=== PATIENT | male | born 1950 | race Caucasian/White ===

== ENCOUNTER 2023-08-23 10:48 | Observation (INO) ==
[2023-08-23 11:42] LABS: Hematocrit 36.9 % (38-53); Hemoglobin 12.7 g/dL (13.2-16.3); Mean Corpuscular Hemoglobin 28.4 pg (27-33); Mean Corpuscular Hgb Conc 34.4 g/dL (31-36); Mean Corpuscular Volume 82.6 fL (80-97); Mean Platelet Volume 5.9 fL (7.5-11.2); Platelet Count 275 10^3/uL (150-450); Red Blood Count 4.47 10^6/uL (4.06-5.63); Red Cell Distribution Width 15.5 % (12-17)
[2023-08-23] MEDS: NS 0.9% 500 ml BAG 500 ML IV ONE (11:45)
[2023-08-23 12:05] LABS: High Sens Troponin Baseline 8 pg/mL (<20)
[2023-08-23 12:13] LABS: ABS Basophils 0.1 10^3/uL (0.0-0.1); ABS Eosinophils 0.1 10^3/uL (0.0-0.5); ABS Lymphocytes 1.2 10^3/uL (1.0-4.8); ABS Monocytes 1.9 10^3/uL (0.0-1.1); ABS Neutrophils 6.7 10^3/uL (1.5-7.6); ABS Nucleated RBC 0.01 10^3/ul; Eosinophil % 1.4 %; Lymphocyte % 11.8 %; Nucleated Red Blood Cells % 0.1 %/100WBC (0.0-0.8)
[2023-08-23 12:40] LABS: Urine Appearance Clear; Urine Bilirubin Negative (Negative); Urine Blood Negative (Negative); Urine Color Yellow; Urine Glucose Negative (Negative); Urine Ketones Negative (Negative); Urine Nitrite Negative (Negative); Urine Protein Trace (Negative); Urine Specific Gravity 1.016 (1.002-1.030); Urine Urobilinogen Negative (Negative)
[2023-08-23 13:15] LABS: INR 1.24 (0.83-1.13)
[2023-08-23 13:15] LABS: ALT 11 U/L (7-52); AST 22 U/L (13-39); Albumin 4.1 g/dL (3.2-5.2); Albumin/Globulin Ratio 1.4 (1-3); Alkaline Phosphatase 70 U/L (35-149); Anion Gap 12 mmol/L (2-16); Blood Urea Nitrogen 18 mg/dL (6-24); CO2 Carbon Dioxide 19 mmol/L (22-32); Calcium 9.3 mg/dL (8.6-10.3); Chloride 97 mmol/L (101-111); Creatinine, Serum 1.31 mg/dL (0.67-1.17); Glucose 100 mg/dL (70-100); Lipase < 10 U/L (11.0-82.0); Magnesium 1.4 mg/dL (1.9-2.7); Potassium 3.6 mmol/L (3.5-5.0); Sodium 128 mmol/L (135-145); Total Bilirubin 1.1 mg/dL (0.2-1.0); Total Protein 7.1 g/dL (6.4-8.9); eGFR CKD-EPI 57.8 (>60)
[2023-08-23] MEDS ORDERED: Dextrose 50% Syringe 50 ml 25 GM/50 ML SYRINGE IV PUSH ONE (13:18)
[2023-08-23 13:20] LABS: RBC Morphology Normal (Normal)
[2023-08-23 13:23] LABS: High Sensitivity Troponin 1 Hr 8 pg/mL (<20)
[2023-08-23] MEDS: Iodixanol (CONTRAST) 320 MG/ML 100 ML SDV IV ONE (13:46)
[2023-08-23] MEDS: Magnesium Sulfate 2 gm BAG 2 GM/50 ML BAG IVPB ONE (14:41)
[2023-08-23] MEDS: NS 0.9% 1000 ml BAG 1,000 ML IV SCH (14:41)
[2023-08-23] MEDS ORDERED: Ondansetron 4 mg VIAL 2 MG/ML 2 ml VIAL IV PRN (18:05)
[2023-08-23] MEDS ORDERED: Enoxaparin 40 MG/0.4 ML SYR SUBCUT SCH (20:00)
[2023-08-23] MEDS: Lactated Ringers 1000 ml BAG 1,000 ML IV ONE (20:14)
[2023-08-23] MEDS: Hydrocortisone INJ 100 MG/2ML 2 ML VIAL IV SCH (20:18)
[2023-08-23] MEDS: Pantoprazole VIAL 40 MG VIAL IV SCH (20:18)
[2023-08-23] MEDS ORDERED: Ondansetron ODT 4 mg TAB 4 MG TAB SL PRN (20:42)
[2023-08-24 05:32] LABS: Calcium 8.6 mg/dL (8.6-10.3); Creatinine, Serum 1.19 mg/dL (0.67-1.17); Potassium 4.1 mmol/L (3.5-5.0); eGFR CKD-EPI 64.9 (>60)
[2023-08-24 13:30] VITALS: BP 120/66
[2023-08-24 16:39] LABS: Magnesium 1.9 mg/dL (1.9-2.7)
[2023-08-24 17:37] LABS: ABS Lymphocytes 0.6 10^3/uL (1.0-4.8); ABS Monocytes 0.4 10^3/uL (0.0-1.1); ABS Neutrophils 4.6 10^3/uL (1.5-7.6); Eosinophil % 0.2 %; Hematocrit 32.3 % (38-53); Hemoglobin 10.9 g/dL (13.2-16.3); Lymphocyte % 10.7 %; Mean Corpuscular Hemoglobin 28.2 pg (27-33); Mean Corpuscular Hgb Conc 33.7 g/dL (31-36); Mean Corpuscular Volume 83.5 fL (80-97); Mean Platelet Volume 6.2 fL (7.5-11.2); Nucleated Red Blood Cells % 0.1 %/100WBC (0.0-0.8); Platelet Count 208 10^3/uL (150-450); Red Blood Count 3.87 10^6/uL (4.06-5.63); Red Cell Distribution Width 15.7 % (12-17); White Blood Count 5.6 10^3/uL (3.6-10.2)
== END 2023-08-24 16:10 | disposition home or self-care (01) ==
LOC: EDHOLD 10:48 → ED 10:48 → MED 17:13
PROVIDERS: ADMIT Internal Medicine; ATTEND Internal Medicine

== ENCOUNTER 2024-02-07 02:59 | Inpatient (IN) ==
[2024-02-07] MEDS ORDERED: Dextrose 50% Syringe 50 ml 25 GM/50 ML SYRINGE ONE ×2 (07:11→11:06)
[2024-02-07 07:21] LABS: Urine Appearance Clear; Urine Bilirubin Negative (Negative); Urine Blood Negative (Negative); Urine Color Light-Yellow; Urine Glucose Negative (Negative); Urine Ketones Negative (Negative); Urine Nitrite Negative (Negative); Urine Protein Negative (Negative); Urine Specific Gravity 1.011 (1.002-1.030); Urine Urobilinogen Negative (Negative); Urine pH 5.5 (5.0-8.0)
[2024-02-07] MEDS: Dextrose 50% Syringe 50 ml 25 GM/50 ML SYRINGE IV PUSH ONE ×2 (07:37→11:19)
[2024-02-07 08:34] LABS: ABS Eosinophils 0.3 10^3/uL (0.0-0.5); ABS Lymphocytes 1.3 10^3/uL (1.0-4.8); ABS Monocytes 0.9 10^3/uL (0.0-1.1); ABS Neutrophils 2.7 10^3/uL (1.5-7.6); Eosinophil % 5.1 %; Hematocrit 34.3 % (38-53); Hemoglobin 11.6 g/dL (13.2-16.3); Lymphocyte % 25.4 %; Mean Corpuscular Hemoglobin 26.3 pg (27-33); Mean Corpuscular Hgb Conc 33.8 g/dL (31-36); Mean Corpuscular Volume 77.9 fL (80-97); Mean Platelet Volume 5.8 fL (7.5-11.2); Nucleated Red Blood Cells % 0.1 %/100WBC (0.0-0.8); Platelet Count 217 10^3/uL (150-450); Red Cell Distribution Width 17.8 % (12-17); White Blood Count 5.3 10^3/uL (3.6-10.2)
[2024-02-07 09:28] LABS: ALT 11 U/L (7-52); AST 14 U/L (13-39); Albumin 3.9 g/dL (3.2-5.2); Alkaline Phosphatase 58 U/L (35-149); Anion Gap 9 mmol/L (2-16); Blood Urea Nitrogen 9 mg/dL (6-24); CO2 Carbon Dioxide 24 mmol/L (22-32); Calcium 9.4 mg/dL (8.6-10.3); Chloride 97 mmol/L (101-111); Creatinine, Serum 0.65 mg/dL (0.67-1.17); Glucose 169 mg/dL (70-100); Potassium 3.5 mmol/L (3.5-5.0); Sodium 130 mmol/L (135-145); Total Bilirubin 0.4 mg/dL (0.2-1.0); Total Protein 5.9 g/dL (6.4-8.9); eGFR CKD-EPI 99.5 (>60)
[2024-02-07 11:41] LABS: Glucose Confirmatory 500 mg/dL (70-100)
[2024-02-07 11:43] LABS: Creatine Kinase 24 U/L (10-223)
[2024-02-07 11:45] LABS: INR 1.17 (0.85-1.14)
[2024-02-07 12:52] LABS: High Sensitivity Troponin 1 Hr 5 pg/mL (<20)
[2024-02-07] MEDS: D5LR 1000 ml BAG 1,000 ML IV SCH (13:00)
[2024-02-07] MEDS: Iodixanol (CONTRAST) 320 MG/ML 100 ML SDV IV ONE (14:01)
[2024-02-07 15:03] LABS: TSH Ultra Thyroid Stim Horm < 0.01 mcIU/mL (0.34-5.60)
[2024-02-07 15:07] LABS: Free T4 1.35 ng/dL (0.61-1.12)
[2024-02-07] MEDS ORDERED: Senna TAB 8.6 mg TAB PO PRN (16:03)
[2024-02-07] MEDS: Enoxaparin 40 MG/0.4 ML SYR SUBCUT SCH (17:55)
[2024-02-07] MEDS ORDERED: Dextrose 50% VIAL 50 ml IV PRN (21:36)
[2024-02-07] MEDS ORDERED: Dextrose 50% Syringe 50 ml 25 GM/50 ML SYRINGE PRN (21:54)
[2024-02-07] MEDS: Dextrose 50% Syringe 50 ml 25 GM/50 ML SYRINGE IV PUSH PRN (22:31)
[2024-02-08 00:51] LABS: Calcium 9.4 mg/dL (8.6-10.3); Creatinine, Serum 0.73 mg/dL (0.67-1.17); Potassium 3.9 mmol/L (3.5-5.0); eGFR CKD-EPI 96.1 (>60)
[2024-02-08] MEDS ORDERED: Dextrose 50% Syringe 50 ml 25 GM/50 ML SYRINGE IV PUSH PRN (02:30)
[2024-02-08] MEDS: D5LR 1000 ml BAG 1,000 ML IV SCH (03:00)
[2024-02-08] MEDS: Dextrose 50% Syringe 50 ml 25 GM/50 ML SYRINGE IV PUSH PRN ×2 (03:01→23:43)
[2024-02-08 06:16] LABS: ABS Eosinophils 0.1 10^3/uL (0.0-0.5); ABS Lymphocytes 0.9 10^3/uL (1.0-4.8); ABS Monocytes 0.7 10^3/uL (0.0-1.1); ABS Neutrophils 5.9 10^3/uL (1.5-7.6); Eosinophil % 0.7 %; Hematocrit 35.8 % (38-53); Hemoglobin 12.1 g/dL (13.2-16.3); Lymphocyte % 11.7 %; Mean Corpuscular Hemoglobin 26.3 pg (27-33); Mean Corpuscular Hgb Conc 33.8 g/dL (31-36); Mean Corpuscular Volume 77.7 fL (80-97); Mean Platelet Volume 6.1 fL (7.5-11.2); Platelet Count 259 10^3/uL (150-450); Red Blood Count 4.61 10^6/uL (4.06-5.63); Red Cell Distribution Width 17.8 % (12-17); White Blood Count 7.6 10^3/uL (3.6-10.2)
[2024-02-08 06:44] LABS: Calcium 9.7 mg/dL (8.6-10.3); Creatinine, Serum 0.63 mg/dL (0.67-1.17); Magnesium 1.5 mg/dL (1.9-2.7); Potassium 4.2 mmol/L (3.5-5.0); eGFR CKD-EPI 100.4 (>60)
[2024-02-08] MEDS: Magnesium Sulf 4 GM/100 ML IV 4,000 MG/100 ML BAG IVPB ONE (12:24)
[2024-02-08] MEDS: Hydrocortisone INJ 100 MG/2ML 2 ML VIAL IV SCH (14:34)
[2024-02-08] MEDS: Haloperidol 5 mg/ml SDV IV/IM 5 MG/ML AMP IV SLOW PU ONE ×2 (21:04→23:19)
[2024-02-09] MEDS: Hydrocortisone INJ 100 MG/2ML 2 ML VIAL IV SCH (01:28)
[2024-02-09] MEDS: D5LR 1000 ml BAG 1,000 ML IV SCH (12:10)
[2024-02-09 12:47] LABS: Calcium 9.8 mg/dL (8.6-10.3); Creatinine, Serum 0.69 mg/dL (0.67-1.17); Magnesium 1.9 mg/dL (1.9-2.7); Potassium 3.7 mmol/L (3.5-5.0); eGFR CKD-EPI 97.7 (>60)
[2024-02-09 13:07] LABS: ABS Lymphocytes 1.3 10^3/uL (1.0-4.8); ABS Monocytes 1.3 10^3/uL (0.0-1.1); ABS Neutrophils 7.4 10^3/uL (1.5-7.6); Eosinophil % 0.2 %; Hematocrit 34.6 % (38-53); Hemoglobin 11.5 g/dL (13.2-16.3); Mean Corpuscular Hemoglobin 25.8 pg (27-33); Mean Corpuscular Hgb Conc 33.2 g/dL (31-36); Mean Corpuscular Volume 77.6 fL (80-97); Mean Platelet Volume 5.9 fL (7.5-11.2); Platelet Count 296 10^3/uL (150-450); Red Blood Count 4.46 10^6/uL (4.06-5.63); Red Cell Distribution Width 18.1 % (12-17); White Blood Count 10.1 10^3/uL (3.6-10.2)
[2024-02-10] MEDS: Haloperidol 5 mg/ml SDV IV/IM 5 MG/ML AMP IV SLOW PU PRN (05:15)
[2024-02-10 06:22] LABS: ABS Lymphocytes 1.1 10^3/uL (1.0-4.8); ABS Monocytes 0.6 10^3/uL (0.0-1.1); ABS Neutrophils 6.6 10^3/uL (1.5-7.6); Eosinophil % 0.1 %; Hematocrit 32.5 % (38-53); Hemoglobin 10.7 g/dL (13.2-16.3); Mean Corpuscular Hemoglobin 25.8 pg (27-33); Mean Corpuscular Hgb Conc 32.8 g/dL (31-36); Mean Corpuscular Volume 78.8 fL (80-97); Mean Platelet Volume 6.2 fL (7.5-11.2); Platelet Count 225 10^3/uL (150-450); Red Blood Count 4.12 10^6/uL (4.06-5.63); Red Cell Distribution Width 17.6 % (12-17); White Blood Count 8.4 10^3/uL (3.6-10.2)
[2024-02-10 07:04] LABS: Anion Gap 9 mmol/L (2-16); Blood Urea Nitrogen 10 mg/dL (6-24); C Reactive Protein 6.71 mg/L (<8.01); CO2 Carbon Dioxide 25 mmol/L (22-32); Calcium 9.5 mg/dL (8.6-10.3); Chloride 105 mmol/L (101-111); Glucose 105 mg/dL (70-100); Magnesium 1.6 mg/dL (1.9-2.7); Potassium 3.5 mmol/L (3.5-5.0); Sodium 139 mmol/L (135-145); eGFR CKD-EPI 101.9 (>60)
[2024-02-10 11:27] LABS: TSH Ultra Thyroid Stim Horm < 0.01 mcIU/mL (0.34-5.60)
[2024-02-10 11:28] LABS: Free T3 2.45 pg/mL (2.5-3.9)
[2024-02-10 11:29] LABS: Free T4 1.25 ng/dL (0.61-1.12)
[2024-02-10] MEDS: Magnesium Sulf 4 GM/100 ML IV 4,000 MG/100 ML BAG IVPB ONE (11:59)
[2024-02-11 05:40] LABS: Hematocrit 30.6 % (38-53); Hemoglobin 10.4 g/dL (13.2-16.3); Mean Corpuscular Hemoglobin 26.5 pg (27-33); Mean Corpuscular Hgb Conc 33.9 g/dL (31-36); Mean Corpuscular Volume 78.2 fL (80-97); Mean Platelet Volume 6.1 fL (7.5-11.2); Platelet Count 199 10^3/uL (150-450); Red Blood Count 3.91 10^6/uL (4.06-5.63); Red Cell Distribution Width 17.5 % (12-17); White Blood Count 8.2 10^3/uL (3.6-10.2)
[2024-02-11 08:07] LABS: Calcium 8.8 mg/dL (8.6-10.3); Creatinine, Serum 0.62 mg/dL (0.67-1.17); Magnesium 1.9 mg/dL (1.9-2.7); Potassium 3.2 mmol/L (3.5-5.0); eGFR CKD-EPI 100.9 (>60)
[2024-02-11] MEDS: Potassium Chlor 20 meq TAB.ER PO SCH (12:34)
[2024-02-11 13:17] LABS: Insulin 7.4 mcIU/mL (2.0-16.0)
[2024-02-11] MEDS ORDERED: D10W 1000 ml BAG 1,000 ML IV SCH (15:00)
[2024-02-11] MEDS: D10W 1000 ml BAG 1,000 ML IV SCH (16:06)
[2024-02-11] MEDS: Magnesium Sulfate 2 gm BAG 2 GM/50 ML BAG IVPB ONE (17:49)
[2024-02-12 06:07] LABS: Calcium 8.8 mg/dL (8.6-10.3); Creatinine, Serum 0.66 mg/dL (0.67-1.17); Potassium 3.5 mmol/L (3.5-5.0)
[2024-02-12 06:34] LABS: Hematocrit 31.7 % (38-53); Hemoglobin 10.7 g/dL (13.2-16.3); Mean Corpuscular Hemoglobin 26.5 pg (27-33); Mean Corpuscular Hgb Conc 33.8 g/dL (31-36); Mean Corpuscular Volume 78.3 fL (80-97); Mean Platelet Volume 6.2 fL (7.5-11.2); Platelet Count 208 10^3/uL (150-450); Red Blood Count 4.05 10^6/uL (4.06-5.63); Red Cell Distribution Width 17.3 % (12-17); White Blood Count 8.7 10^3/uL (3.6-10.2)
[2024-02-12] MEDS ORDERED: Dextrose 50% Syringe 50 ml 25 GM/50 ML SYRINGE IV PUSH PRN (10:04)
[2024-02-12 17:15] LABS: Calcium 8.5 mg/dL (8.6-10.3); Creatinine, Serum 0.64 mg/dL (0.67-1.17); Potassium 3.3 mmol/L (3.5-5.0)
[2024-02-12] MEDS: D10W 1000 ml BAG 1,000 ML IV SCH (18:21)
[2024-02-12 20:51] LABS: Calcium 8.7 mg/dL (8.6-10.3); Creatinine, Serum 0.81 mg/dL (0.67-1.17); Potassium 3.6 mmol/L (3.5-5.0); eGFR CKD-EPI 93.1 (>60)
[2024-02-13 01:17] LABS: Calcium 8.5 mg/dL (8.6-10.3); Creatinine, Serum 0.79 mg/dL (0.67-1.17); Potassium 3.6 mmol/L (3.5-5.0); eGFR CKD-EPI 93.8 (>60)
[2024-02-13 05:49] LABS: Calcium 8.5 mg/dL (8.6-10.3); Creatinine, Serum 0.76 mg/dL (0.67-1.17); Potassium 3.5 mmol/L (3.5-5.0); eGFR CKD-EPI 94.9 (>60)
[2024-02-13 06:02] LABS: ABS Basophils 0.1 10^3/uL (0.0-0.1); ABS Eosinophils 0.4 10^3/uL (0.0-0.5); ABS Lymphocytes 2.6 10^3/uL (1.0-4.8); ABS Monocytes 1.5 10^3/uL (0.0-1.1); ABS Neutrophils 4.4 10^3/uL (1.5-7.6); Eosinophil % 4.9 %; Hematocrit 32.9 % (38-53); Lymphocyte % 28.9 %; Mean Corpuscular Hemoglobin 26.3 pg (27-33); Mean Corpuscular Hgb Conc 33.5 g/dL (31-36); Mean Corpuscular Volume 78.3 fL (80-97); Platelet Count 233 10^3/uL (150-450); Red Cell Distribution Width 17.1 % (12-17); White Blood Count 9.1 10^3/uL (3.6-10.2)
[2024-02-13 07:05] LABS: Magnesium 1.7 mg/dL (1.9-2.7)
[2024-02-13] MEDS ORDERED: Dextrose 50% Syringe 50 ml 25 GM/50 ML SYRINGE IV PUSH PRN (09:18)
[2024-02-13 09:31] LABS: Calcium 8.7 mg/dL (8.6-10.3); Creatinine, Serum 0.74 mg/dL (0.67-1.17); Potassium 3.5 mmol/L (3.5-5.0); eGFR CKD-EPI 95.7 (>60)
[2024-02-13] MEDS: Iodixanol (CONTRAST) 320 MG/ML 100 ML SDV IV ONE (20:13)
[2024-02-14] MEDS: Magnesium Sulfate 2 gm BAG 2 GM/50 ML BAG IVPB ONE (01:52)
[2024-02-14] MEDS: Magnesium Sulfate IV 1GM/100ML 1 GM/100 ML BAG IV ONE (03:34)
[2024-02-14 10:01] VITALS: BP 135/72
[2024-02-14 11:35] LABS: Rapid COVID-19 Molecular Undetected (Undetected)
== END 2024-02-14 13:20 | DRG 641 ==
LOC: ED 02:59 → EDHOLD 02:59 → SUATTDRO 16:03 → MED 17:22 → SUATTDRO 02-08 10:46
PROVIDERS: ADMIT Internal Medicine; ATTEND Internal Medicine

== ENCOUNTER 2024-03-21 13:48 | Inpatient (IN) ==
[2024-03-21] MEDS: Piperacillin/Tazobac 3.375 BAG 3.375 GM/100 ML BAG IV ONE (14:37)
[2024-03-21] MEDS: Lactated Ringers 1000 ml BAG 1,000 ML IV ONE ×3 (14:37→23:33)
[2024-03-21 14:45] LABS: Activated Partial Thrombo Time 35.9 seconds (26.0-38.0); INR 1.33 (0.85-1.14)
[2024-03-21 15:07] LABS: Albumin 3.8 g/dL (3.2-5.2); Albumin/Globulin Ratio 1.7 (1-3); Creatinine, Serum 1.78 mg/dL (0.67-1.17); Direct Bilirubin 0.2 mg/dL (0.03-0.18); Globulin 2.3 g/dL (2-4); HDL Cholesterol 54.3 mg/dL; Indirect Bilirubin 1.7 mg/dL (0.3-1.0); Potassium 4.1 mmol/L (3.5-5.0); Total Bilirubin 1.9 mg/dL (0.2-1.0); Total Protein 6.1 g/dL (6.4-8.9); eGFR CKD-EPI 39.8 (>60)
[2024-03-21 15:11] LABS: Hematocrit 39.3 % (38-53); Hemoglobin 12.6 g/dL (13.2-16.3); Mean Corpuscular Hemoglobin 24.4 pg (27-33); Mean Corpuscular Hgb Conc 32.1 g/dL (31-36); Mean Corpuscular Volume 76.1 fL (80-97); Mean Platelet Volume 6.3 fL (7.5-11.2); Platelet Count 325 10^3/uL (150-450); Red Blood Count 5.17 10^6/uL (4.06-5.63); Red Cell Distribution Width 16.7 % (12-17); White Blood Count 19.6 10^3/uL (3.6-10.2)
[2024-03-21 16:25] LABS: ABS Basophils 0.1 10^3/uL (0.0-0.1); ABS Eosinophils 0.1 10^3/uL (0.0-0.5); ABS Lymphocytes 1.3 10^3/uL (1.0-4.8); ABS Monocytes 2.5 10^3/uL (0.0-1.1); ABS Neutrophils 15.7 10^3/uL (1.5-7.6); Eosinophil % 0.3 %; Lymphocyte % 6.4 %
[2024-03-21] MEDS: Vancomycin 1,500 MG in NS 0.9% 250 ml 250 ML IVPB ONE (17:57)
[2024-03-21 18:35] LABS: Urine Appearance Clear; Urine Bilirubin Negative (Negative); Urine Blood Negative (Negative); Urine Color Yellow; Urine Glucose Negative (Negative); Urine Ketones Negative (Negative); Urine Nitrite Negative (Negative); Urine Protein 1+ (>=30 mg/dL) (Negative); Urine Specific Gravity 1.032 (1.002-1.030); Urine Urobilinogen Negative (Negative); Urine pH 6.5 (5.0-8.0)
[2024-03-21 18:52] LABS: Urine Bacteria Absent /HPF (Absent); Urine Red Blood Cell 1+(3-5/hpf) /HPF (0-Trace); Urine Squamous Epithelial Cell Present /HPF (Absent); Urine White Blood Cell Trace(0-5/hpf) /HPF (0-Trace)
[2024-03-21] MEDS ORDERED: Zosyn per Pharmacy NOTE FOLLOW UP SCH (19:00)
[2024-03-21 19:37] LABS: C Reactive Protein 194.7 mg/L (<8.01); Magnesium 1.7 mg/dL (1.9-2.7)
[2024-03-21] MEDS: ZOSYN 3.375 GM Q8H per EXTENDED INFUSION IV SCH (20:11)
[2024-03-21] MEDS ORDERED: Vancomycin per Pharmacy 1 EA NOTE FOLLOW UP SCH (22:00)
[2024-03-21] MEDS: Hydrocortisone INJ 100 MG/2ML 2 ML VIAL IV SCH (23:30)
[2024-03-22] MEDS: ZOSYN 3.375 GM Q8H per EXTENDED INFUSION IV SCH (04:39)
[2024-03-22] MEDS: Heparin 5000 UNITS/ML 1 mL VIAL SUBCUT SCH (05:21)
[2024-03-22 05:30] LABS: ABS Lymphocytes 0.7 10^3/uL (1.0-4.8); ABS Monocytes 0.7 10^3/uL (0.0-1.1); ABS Nucleated RBC 0.01 10^3/ul; Eosinophil % 0.2 %; Hematocrit 39.4 % (38-53); Hemoglobin 12.5 g/dL (13.2-16.3); Lymphocyte % 5.9 %; Mean Corpuscular Hemoglobin 24.3 pg (27-33); Mean Corpuscular Hgb Conc 31.7 g/dL (31-36); Mean Corpuscular Volume 76.7 fL (80-97); Nucleated Red Blood Cells % 0.1 %/100WBC (0.0-0.8); Platelet Count 251 10^3/uL (150-450); Red Blood Count 5.13 10^6/uL (4.06-5.63); White Blood Count 12.4 10^3/uL (3.6-10.2)
[2024-03-22 06:00] LABS: Albumin 3.8 g/dL (3.2-5.2); Albumin/Globulin Ratio 1.7 (1-3); C Reactive Protein 317.51 mg/L (<8.01); Calcium 9.9 mg/dL (8.6-10.3); Direct Bilirubin 0.2 mg/dL (0.03-0.18); Globulin 2.3 g/dL (2-4); Indirect Bilirubin 1.4 mg/dL (0.3-1.0); Magnesium 1.7 mg/dL (1.9-2.7); Potassium 4.4 mmol/L (3.5-5.0); Total Bilirubin 1.6 mg/dL (0.2-1.0); Total Protein 6.1 g/dL (6.4-8.9); Vancomycin Random 8.6 mcg/mL; eGFR CKD-EPI 79.5 (>60)
[2024-03-22] MEDS: Vancomycin Random Level NOTE FOLLOW UP ONE (09:08)
[2024-03-22] MEDS: Magnesium Sulfate 2 gm BAG 2 GM/50 ML BAG IVPB ONE (09:09)
[2024-03-22] MEDS: Vancomycin 1000 MG in NS 0.9% 250 ML IVPB SCH (09:19)
[2024-03-23 04:43] LABS: Hematocrit 32.3 % (38-53); Hemoglobin 10.6 g/dL (13.2-16.3); Mean Corpuscular Hemoglobin 24.7 pg (27-33); Mean Corpuscular Hgb Conc 32.8 g/dL (31-36); Mean Corpuscular Volume 75.4 fL (80-97); Platelet Count 241 10^3/uL (150-450); Red Blood Count 4.28 10^6/uL (4.06-5.63); Red Cell Distribution Width 16.2 % (12-17); White Blood Count 10.9 10^3/uL (3.6-10.2)
[2024-03-23 05:02] LABS: Albumin 3.5 g/dL (3.2-5.2); Albumin/Globulin Ratio 1.7 (1-3); Calcium 9.6 mg/dL (8.6-10.3); Creatinine, Serum 0.72 mg/dL (0.67-1.17); Globulin 2.1 g/dL (2-4); Potassium 3.7 mmol/L (3.5-5.0); Total Bilirubin 0.9 mg/dL (0.2-1.0); Total Protein 5.6 g/dL (6.4-8.9); eGFR CKD-EPI 96.5 (>60)
[2024-03-23 08:00] LABS: High Sensitivity Troponin 1 Hr 25 pg/mL (<20)
[2024-03-23] MEDS: Senna TAB 8.6 mg TAB PO SCH (13:16)
[2024-03-23] MEDS: Lactated Ringers 1000 ml BAG 1,000 ML IV SCH (21:01)
[2024-03-23] MEDS: Polyethylene Glycol 3350 17 GM PACKET PO SCH (21:01)
[2024-03-24 06:21] LABS: ABS Lymphocytes 0.8 10^3/uL (1.0-4.8); ABS Monocytes 0.5 10^3/uL (0.0-1.1); ABS Neutrophils 5.7 10^3/uL (1.5-7.6); Eosinophil % 0.2 %; Hematocrit 30.7 % (38-53); Hemoglobin 9.9 g/dL (13.2-16.3); Lymphocyte % 11.3 %; Mean Corpuscular Hemoglobin 24.4 pg (27-33); Mean Corpuscular Hgb Conc 32.3 g/dL (31-36); Mean Corpuscular Volume 75.4 fL (80-97); Mean Platelet Volume 6.1 fL (7.5-11.2); Platelet Count 218 10^3/uL (150-450); Red Blood Count 4.07 10^6/uL (4.06-5.63); Red Cell Distribution Width 16.4 % (12-17)
[2024-03-24 06:56] LABS: Calcium 9.2 mg/dL (8.6-10.3); Creatinine, Serum 0.72 mg/dL (0.67-1.17); Magnesium 1.6 mg/dL (1.9-2.7); Phosphorus 3.1 mg/dL (2.5-5.0); Potassium 3.4 mmol/L (3.5-5.0); eGFR CKD-EPI 96.5 (>60)
[2024-03-24] MEDS ORDERED: Vancomycin Trough Check NOTE FOLLOW UP ONE (08:30)
[2024-03-24] MEDS: Magnesium Sulf 4 GM/100 ML IV 4,000 MG/100 ML BAG IVPB ONE (13:58)
[2024-03-24] MEDS: Potassium Chloride LIQUID 20 MEQ/15 ML LIQUID PO ONE (14:49)
[2024-03-24] MEDS: Potassium Chlor 20 meq TAB.ER PO ONE (14:50)
[2024-03-25 05:35] LABS: ABS Lymphocytes 1.1 10^3/uL (1.0-4.8); ABS Monocytes 0.5 10^3/uL (0.0-1.1); ABS Neutrophils 3.7 10^3/uL (1.5-7.6); Eosinophil % 0.1 %; Hematocrit 32.1 % (38-53); Hemoglobin 10.5 g/dL (13.2-16.3); Lymphocyte % 20.8 %; Mean Corpuscular Hemoglobin 24.8 pg (27-33); Mean Corpuscular Hgb Conc 32.6 g/dL (31-36); Mean Platelet Volume 6.1 fL (7.5-11.2); Nucleated Red Blood Cells % 0.1 %/100WBC (0.0-0.8); Platelet Count 251 10^3/uL (150-450); Red Blood Count 4.22 10^6/uL (4.06-5.63); Red Cell Distribution Width 16.1 % (12-17); White Blood Count 5.4 10^3/uL (3.6-10.2)
[2024-03-25 05:39] LABS: Anion Gap 10 mmol/L (2-16); Blood Urea Nitrogen 15 mg/dL (6-24); CO2 Carbon Dioxide 25 mmol/L (22-32); Calcium 8.9 mg/dL (8.6-10.3); Chloride 106 mmol/L (101-111); Creatinine, Serum 0.76 mg/dL (0.67-1.17); Glucose 124 mg/dL (70-100); Magnesium 2.2 mg/dL (1.9-2.7); Phosphorus 3.8 mg/dL (2.5-5.0); Potassium 3.6 mmol/L (3.5-5.0); Sodium 141 mmol/L (135-145); eGFR CKD-EPI 94.9 (>60)
[2024-03-25] MEDS: Enoxaparin 40 MG/0.4 ML SYR SUBCUT SCH (21:54)
[2024-03-25 23:04] LABS: TSH Ultra Thyroid Stim Horm < 0.01 mcIU/mL (0.34-5.60)
[2024-03-25 23:15] LABS: Folate 15.94 ng/mL (5.90-24.80)
[2024-03-25 23:16] LABS: Vitamin B12 306 pg/mL (180-914)
[2024-03-26 06:49] LABS: ABS Eosinophils 0.1 10^3/uL (0.0-0.5); ABS Lymphocytes 2.2 10^3/uL (1.0-4.8); ABS Monocytes 0.9 10^3/uL (0.0-1.1); ABS Neutrophils 3.2 10^3/uL (1.5-7.6); Eosinophil % 1.7 %; Hematocrit 31.2 % (38-53); Hemoglobin 10.1 g/dL (13.2-16.3); Lymphocyte % 33.9 %; Mean Corpuscular Hemoglobin 24.6 pg (27-33); Mean Corpuscular Hgb Conc 32.5 g/dL (31-36); Mean Corpuscular Volume 75.7 fL (80-97); Platelet Count 242 10^3/uL (150-450); Red Blood Count 4.12 10^6/uL (4.06-5.63); Red Cell Distribution Width 16.2 % (12-17); White Blood Count 6.4 10^3/uL (3.6-10.2)
[2024-03-26 07:01] LABS: Creatinine, Serum 0.71 mg/dL (0.67-1.17); Magnesium 1.8 mg/dL (1.9-2.7); Potassium 3.1 mmol/L (3.5-5.0); eGFR CKD-EPI 96.9 (>60)
[2024-03-26] MEDS: Magnesium Sulfate 2 gm BAG 2 GM/50 ML BAG IVPB ONE (09:42)
[2024-03-26] MEDS: Potassium Chlor 20 meq TAB.ER PO ONE (09:44)
[2024-03-27 09:13] LABS: Rapid COVID-19 Molecular Undetected (Undetected)
[2024-03-27] MEDS ORDERED: Hydrocortisone INJ 100 MG/2ML 2 ML VIAL IV SCH (11:00)
[2024-03-27 11:03] LABS: Hematocrit 38.3 % (38-53); Hemoglobin 12.1 g/dL (13.2-16.3); Mean Corpuscular Hemoglobin 24.1 pg (27-33); Mean Corpuscular Hgb Conc 31.7 g/dL (31-36); Mean Corpuscular Volume 76.2 fL (80-97); Mean Platelet Volume 5.9 fL (7.5-11.2); Platelet Count 325 10^3/uL (150-450); Red Blood Count 5.03 10^6/uL (4.06-5.63); Red Cell Distribution Width 16.7 % (12-17)
[2024-03-27 11:07] LABS: Activated Partial Thrombo Time 33.9 seconds (26.0-38.0); INR 1.14 (0.85-1.14)
[2024-03-27 11:27] LABS: Albumin 3.7 g/dL (3.2-5.2); Albumin/Globulin Ratio 1.4 (1-3); Calcium 9.5 mg/dL (8.6-10.3); Creatinine, Serum 0.9 mg/dL (0.67-1.17); Globulin 2.6 g/dL (2-4); Magnesium 1.9 mg/dL (1.9-2.7); Phosphorus 3.6 mg/dL (2.5-5.0); Potassium 3.2 mmol/L (3.5-5.0); Total Bilirubin 0.5 mg/dL (0.2-1.0); Total Protein 6.3 g/dL (6.4-8.9); eGFR CKD-EPI 90.2 (>60)
[2024-03-27 11:58] LABS: ABS Eosinophils 0.3 10^3/uL (0.0-0.5); ABS Lymphocytes 2.5 10^3/uL (1.0-4.8); ABS Monocytes 1.8 10^3/uL (0.0-1.1); ABS Neutrophils 7.3 10^3/uL (1.5-7.6); Eosinophil % 2.2 %
[2024-03-27] MEDS: Fluticasone NASAL SPRAY 50MCG 16 gm SPRAY BTL BOTH NARES SCH (11:58)
[2024-03-27] MEDS: Iodixanol 320 (CONTRAST) 100 ML SDV IV ONE (11:59)
[2024-03-27] MEDS: Hydrocortisone INJ 100 MG/2ML 2 ML VIAL ONE (12:16)
[2024-03-27] MEDS: Hydrocortisone INJ 100 MG/2ML 2 ML VIAL IV SCH ×2 (12:43→23:38)
[2024-03-27] MEDS: Azithromycin SUSP ORALSYR 20 MG/ML (100 MG/5 ML) PO ONE (13:58)
[2024-03-27] MEDS: Hydrocortisone INJ 100 MG/2ML 2 ML VIAL IV ONE (14:07)
[2024-03-27] MEDS: Sulfur Hexaflouride MICROSPHR 25 MG VIAL IV PRN (15:44)
[2024-03-27] MEDS: Potassium Chloride LIQUID 20 MEQ/15 ML LIQUID PO ONE (19:44)
[2024-03-28] MEDS: Lactated Ringers 1000 ml BAG 250 ML IV ONE (04:07)
[2024-03-28 08:06] LABS: ABS Basophils 0.1 10^3/uL (0.0-0.1); ABS Eosinophils 0.1 10^3/uL (0.0-0.5); ABS Lymphocytes 1.6 10^3/uL (1.0-4.8); ABS Monocytes 1.1 10^3/uL (0.0-1.1); ABS Neutrophils 7.2 10^3/uL (1.5-7.6); ABS Nucleated RBC 0.01 10^3/ul; Hematocrit 38.6 % (38-53); Hemoglobin 12.2 g/dL (13.2-16.3); Lymphocyte % 15.5 %; Mean Corpuscular Hgb Conc 31.7 g/dL (31-36); Mean Corpuscular Volume 75.8 fL (80-97); Mean Platelet Volume 6.2 fL (7.5-11.2); Nucleated Red Blood Cells % 0.1 %/100WBC (0.0-0.8); Platelet Count 369 10^3/uL (150-450); Red Blood Count 5.09 10^6/uL (4.06-5.63); Red Cell Distribution Width 16.6 % (12-17)
[2024-03-28 08:44] LABS: Calcium 9.5 mg/dL (8.6-10.3); Creatinine, Serum 0.99 mg/dL (0.67-1.17); Magnesium 2.1 mg/dL (1.9-2.7); Potassium 4.3 mmol/L (3.5-5.0); eGFR CKD-EPI 80.4 (>60)
[2024-03-28] MEDS ORDERED: Hydrocortisone INJ 100 MG/2ML 2 ML VIAL IV SCH (09:07)
[2024-03-28] MEDS: Lactated Ringers 1000 ml BAG 1,000 ML IV SCH (09:36)
[2024-03-28] MEDS: Aspirin EC 81 mg TAB.EC (enteric coated) PO SCH (09:36)
[2024-03-28 11:26] VITALS: BP 123/82
[2024-03-28] MEDS: Hydrocortisone INJ 100 MG/2ML 2 ML VIAL IV SCH (13:02)
== END 2024-03-28 12:35 | DRG 871 ==
LOC: EDHOLD 13:48 → ED 13:48 → SUATTDRO 16:51 → MEDTELE 21:35
PROVIDERS: ADMIT Internal Medicine; ATTEND Internal Medicine

== ENCOUNTER 2024-04-04 18:27 | Inpatient (IN) ==
[2024-04-04 20:35] LABS: Hematocrit 43.8 % (38-53); Hemoglobin 13.7 g/dL (13.2-16.3); Mean Corpuscular Hemoglobin 23.8 pg (27-33); Mean Corpuscular Hgb Conc 31.3 g/dL (31-36); Mean Corpuscular Volume 75.8 fL (80-97); Mean Platelet Volume 6.2 fL (7.5-11.2); Platelet Count 407 10^3/uL (150-450); Red Blood Count 5.77 10^6/uL (4.06-5.63); Red Cell Distribution Width 17.1 % (12-17); White Blood Count 16.6 10^3/uL (3.6-10.2)
[2024-04-04 20:51] LABS: Urine Appearance Clear; Urine Bilirubin Negative (Negative); Urine Blood Negative (Negative); Urine Color Light-Yellow; Urine Glucose Negative (Negative); Urine Ketones Negative (Negative); Urine Nitrite Negative (Negative); Urine Protein Trace (Negative); Urine Specific Gravity 1.016 (1.002-1.030); Urine Urobilinogen Negative (Negative)
[2024-04-04 21:00] LABS: ABS Basophils 0.1 10^3/uL (0.0-0.1); ABS Eosinophils 0.4 10^3/uL (0.0-0.5); ABS Lymphocytes 2.2 10^3/uL (1.0-4.8); ABS Monocytes 1.6 10^3/uL (0.0-1.1); ABS Neutrophils 12.3 10^3/uL (1.5-7.6); ABS Nucleated RBC 0.02 10^3/ul; Anisocytosis 1+; Eosinophil % 2.2 %; Hypochromasia 1+; Microcytosis 1+; Nucleated Red Blood Cells % 0.1 %/100WBC (0.0-0.8); Polychromasia 1+
[2024-04-04 21:05] LABS: ALT 14 U/L (7-52); AST 18 U/L (13-39); Albumin 4.4 g/dL (3.2-5.2); Albumin/Globulin Ratio 1.9 (1-3); Alcohol, S < 13 mg/dL (<13); Alkaline Phosphatase 78 U/L (35-149); Anion Gap 9 mmol/L (2-16); Blood Urea Nitrogen 12 mg/dL (6-24); CO2 Carbon Dioxide 29 mmol/L (22-32); Calcium 10.6 mg/dL (8.6-10.3); Chloride 99 mmol/L (101-111); Creatinine, Serum 0.88 mg/dL (0.67-1.17); Globulin 2.3 g/dL (2-4); Glucose 118 mg/dL (70-100); Magnesium 1.7 mg/dL (1.9-2.7); Potassium 3.7 mmol/L (3.5-5.0); Sodium 137 mmol/L (135-145); Total Bilirubin 0.7 mg/dL (0.2-1.0); Total Protein 6.7 g/dL (6.4-8.9); eGFR CKD-EPI 90.8 (>60)
[2024-04-04 21:08] LABS: Urine Benzodiazepine Screen None Detected (None Detect); Urine Cannabinoids Screen None Detected (None Detect); Urine Opiates Screen None Detected (None Detect)
[2024-04-04] MEDS: Piperacillin/Tazobac 3.375 BAG 3.375 GM/100 ML BAG IV ONE (23:21)
[2024-04-04] MEDS: Azithromycin 500 mg/250 ml NS 500 MG/250 ML BAG IVPB ONE (23:47)
[2024-04-05 00:40] LABS: C Reactive Protein 24.92 mg/L (<8.01)
[2024-04-05 02:14] LABS: Erythrocyte Sed Rate 7 mm/Hr (0-19)
[2024-04-05] MEDS: Hydrocortisone INJ 100 MG VIAL IV SCH (02:19)
[2024-04-05] MEDS: Magnesium Sulfate 2 gm BAG 2 GM/50 ML BAG IVPB ONE (02:20)
[2024-04-05] MEDS: Magnesium Sulfate IV 1GM/100ML 1 GM/100 ML BAG IV ONE (03:31)
[2024-04-05] MEDS ORDERED: cefTRIAXone 1 gm/50 mL D5W 1 GM/50 ML BAG IV SCH (06:00)
[2024-04-05] MEDS: cefTRIAXone 1 gm/50 mL D5W 1 GM/50 ML BAG IV SCH (06:54)
[2024-04-05 07:31] LABS: ABS Basophils 0.1 10^3/uL (0.0-0.1); ABS Eosinophils 0.1 10^3/uL (0.0-0.5); ABS Lymphocytes 1.2 10^3/uL (1.0-4.8); ABS Monocytes 0.6 10^3/uL (0.0-1.1); ABS Neutrophils 14.8 10^3/uL (1.5-7.6); ABS Nucleated RBC 0.01 10^3/ul; Eosinophil % 0.6 %; Hematocrit 42.1 % (38-53); Hemoglobin 13.7 g/dL (13.2-16.3); Lymphocyte % 7.3 %; Mean Corpuscular Hemoglobin 24.4 pg (27-33); Mean Corpuscular Hgb Conc 32.6 g/dL (31-36); Mean Platelet Volume 6.4 fL (7.5-11.2); Platelet Count 399 10^3/uL (150-450); Red Blood Count 5.61 10^6/uL (4.06-5.63); Red Cell Distribution Width 16.6 % (12-17); White Blood Count 16.9 10^3/uL (3.6-10.2)
[2024-04-05 07:55] LABS: ALT 14 U/L (7-52); AST 16 U/L (13-39); Albumin/Globulin Ratio 1.7 (1-3); Alkaline Phosphatase 77 U/L (35-149); Anion Gap 12 mmol/L (2-16); Blood Urea Nitrogen 11 mg/dL (6-24); CO2 Carbon Dioxide 28 mmol/L (22-32); Calcium 9.9 mg/dL (8.6-10.3); Chloride 102 mmol/L (101-111); Creatinine, Serum 0.78 mg/dL (0.67-1.17); Globulin 2.3 g/dL (2-4); Glucose 110 mg/dL (70-100); Magnesium 2.4 mg/dL (1.9-2.7); Potassium 4.1 mmol/L (3.5-5.0); Sodium 142 mmol/L (135-145); Total Bilirubin 0.7 mg/dL (0.2-1.0); Total Protein 6.3 g/dL (6.4-8.9); eGFR CKD-EPI 94.2 (>60)
[2024-04-05] MEDS: Aspirin EC 81 mg TAB.EC (enteric coated) PO SCH (10:43)
[2024-04-05] MEDS: Hydrocortisone INJ 100 MG/2ML 2 ML VIAL IV SCH (10:43)
[2024-04-05 14:31] LABS: TSH Ultra Thyroid Stim Horm < 0.01 mcIU/mL (0.34-5.60)
[2024-04-05] MEDS: Gadoteridol (CONTRAST) 279.3 MG/ML 10 ML IV ONE (16:19)
[2024-04-05] MEDS: Enoxaparin 40 MG/0.4 ML SYR SUBCUT SCH (21:27)
[2024-04-05] MEDS: Azithromycin 500 mg/250 ml NS 500 MG/250 ML BAG IVPB SCH (23:13)
[2024-04-06] MEDS: Artificial Tear OPHTH.OINT 3.5 GM BOTH EYES PRN (01:31)
[2024-04-06] MEDS: Nystatin TOP POWDER 15 GM BTL TOPICAL SCH (02:54)
[2024-04-06 07:56] LABS: ABS Lymphocytes 1.5 10^3/uL (1.0-4.8); ABS Monocytes 1.1 10^3/uL (0.0-1.1); ABS Neutrophils 16.3 10^3/uL (1.5-7.6); Eosinophil % 0.2 %; Hematocrit 40.3 % (38-53); Hemoglobin 12.4 g/dL (13.2-16.3); Lymphocyte % 7.9 %; Mean Corpuscular Hgb Conc 30.9 g/dL (31-36); Mean Corpuscular Volume 77.8 fL (80-97); Mean Platelet Volume 6.1 fL (7.5-11.2); Platelet Count 315 10^3/uL (150-450); Red Blood Count 5.17 10^6/uL (4.06-5.63); Red Cell Distribution Width 16.9 % (12-17)
[2024-04-06 08:47] LABS: Anion Gap 14 mmol/L (2-16); Blood Urea Nitrogen 17 mg/dL (6-24); CO2 Carbon Dioxide 22 mmol/L (22-32); Calcium 9.7 mg/dL (8.6-10.3); Chloride 104 mmol/L (101-111); Creatinine, Serum 1.02 mg/dL (0.67-1.17); Glucose 104 mg/dL (70-100); Sodium 140 mmol/L (135-145); eGFR CKD-EPI 77.6 (>60)
[2024-04-06] MEDS: Dexamethasone IV 4 MG/ML VIAL 1 ml VIAL IV SLOW PU SCH (17:51)
[2024-04-09 03:22] VITALS: BP 204/114
[2024-04-09] MEDS ORDERED: Morphine ORAL CONCENTRATE 5 MG/0.25 ML ORAL.SYRIN PO PRN (11:51)
[2024-04-09] MEDS ORDERED: LORazepam 2 mg VIAL 1 ml IV PUSH PRN (11:51)
[2024-04-09] MEDS ORDERED: Atropine 1% (ORAL/SL) 15 ML BTL SL PRN (11:51)
[2024-04-09] MEDS ORDERED: Lorazepam PYXIS KEY PRN (11:55)
== END 2024-04-10 13:10 | disposition hospice, inpatient (51) | DRG 54 ==
LOC: ED 18:27 → EDHOLD 18:27 → MED 04-05 01:45 → SUATTDRO 04-05 16:46
PROVIDERS: ADMIT Internal Medicine; ATTEND Internal Medicine